=== PATIENT | female | born 1980 | race Two or more races ===

== ENCOUNTER 2018-04-29 09:25 | Emergency (ER) | payer MEDICAID ==
[~2018-04-29] VITALS: Ht 157.5 cm; Wt 66.5 kg
[2018-04-29 09:29] VITALS: BP 172/119
== END 2018-04-29 10:22 | disposition left against medical advice (07) ==
LOC: ED 10:16
DX: M25.562 Pain in left knee (principal); M25.561 Pain in right knee; M79.89 Other specified soft tissue disorders; Z53.21 Procedure and treatment not carried out due to patient leaving prior to being seen by health care provider

== ENCOUNTER 2018-05-20 09:49 | Emergency (ER) | payer MEDICAID ==
[~2018-05-20] VITALS: Ht 157.5 cm; Wt 66.0 kg
[2018-05-20] MEDS ORDERED: DICY20TA3 PO (10:31)
[2018-05-20] MEDS ORDERED: SERTRALINE (10:31)
[2018-05-20] MEDS ORDERED: PROP120C3 PO (10:31)
[2018-05-20] MEDS ORDERED: LIDOCAINE-MPF 2% ,5ML ONE ×2 (10:51→10:54)
[2018-05-20] MEDS ORDERED: LIDOCAINE-MPF 1%, 5ML INFIL ONE (11:00)
[2018-05-20 11:31] VITALS: BP 147/82
== END 2018-05-20 11:41 | disposition home or self-care (01) ==
LOC: ED 10:51
DX: S62.614A Displaced fracture of proximal phalanx of right ring finger, initial encounter for closed fracture (principal); Z76.0 Encounter for issue of repeat prescription; Z88.0 Allergy status to penicillin; W10.9XXA Fall (on) (from) unspecified stairs and steps, initial encounter; Y93.89 Activity, other specified; Y92.009 Unspecified place in unspecified non-institutional (private) residence as the place of occurrence of the external cause; Y99.8 Other external cause status
CPT/HCPCS: 26725; 99284